=== PATIENT | male | born 1945 | race Caucasian/White ===

== ENCOUNTER → 2020-08-04 | Outpatient (CLI) | payer MEDICARE, BC ==
--- NOTE | 2020-08-05 08:51 | CT ---
EXAMINATION TYPE: CT angio chest DATE OF EXAM: 08/04/2020 COMPARISON: None HISTORY: aneurysm CT DLP: 530.9 mGycm Automated exposure control for dose reduction was used. CONTRAST: CTA scan of the thorax is performed with IV Contrast, patient injected with 100 mL of Isovue 370, pul monary embolism protocol. MIP images are created and reviewed. 3D reconstructed images are created on an independent workstation and reviewed. FINDINGS: LUNGS: The lungs are remarkable for a nodular area on axial image #23 chest suspect is associated wit h the fissure and is postinflammatory measuring approximately 1 cm transverse dimension, on sagittal imaging #79 lesion measures 4.1 cm in cephalad to caudal dimension and is 5 to 6 mm in AP dimension. There is dependent atelectatic change suspected There is no pleural effusion or pneumothorax seen. The tracheobronchial tree is patent. AORTA: The root of the aorta measures approximately 4.6 cm, ascending aorta 3.9 cm, proximal descend ing aorta 3.4 cm, the aorta at level of the hiatus measures approximately 2.7 cm MEDIASTINUM: There is satisfactory enhancement of the pulmonary artery and its branches, there is no CT evidence for pulmonary embolism. There are no greater than 1 cm hilar or mediastinal lymph nodes. No pericardial effusion is seen. Hiatal hernia is present with partial intrathoracic stomach. Ther e are coronary artery calcifications. OTHER: Low-density focus associated with the right adrenal gland measures approximately 2.2 cm is fe lt most likely to represent adenoma. There are low dense foci scattered within the liver which statis tically are likely to represent cysts, the largest in the left lobe measures 3.6 cm with Hounsfield u nit measurements in the cyst range. Spleen is enlarged measuring 15 cm in AP dimension. Left axillary adenopathy is noted incidentally, axial image 13 shows transverse dimension node of approximately 14 mm, there are additional nodes present including subpectoral region IMPRESSION: AORTIC ANEURYSM. SPLENOMEGALY. RIGHT ADRENAL MASS. HIATAL HERNIA. CORONARY ARTERY DISEASE. LEFT AXILL ROSMERY ADENOPATHY AND PULMONARY NODULE ARE INDETERMINATE. A Yellow level critical message alert has been initiated for Heaven Kumar MD via the [employer] [facility] [employer] Critical Results System on 08/05/2020 8:49 AM. This message alert has been sent to Heaven Kumar MD via the preferences provided by the clinician for the receipt of Radiology Critical Findings. Mess age ID [id number].
== END | disposition home or self-care (01) ==
LOC: RADCTMAIN 16:28
PROVIDERS: ATTEND Internal Medicine Interventional Cardiology
DX: I71.2 Thoracic aortic aneurysm, without rupture (principal); I25.10 Atherosclerotic heart disease of native coronary artery without angina pectoris
CPT/HCPCS: 82565; 84520; 71275; 36415; Q9967

== ENCOUNTER → 2021-08-10 | Outpatient (CLI) | payer MEDICARE, BC ==
--- NOTE | 2021-08-10 13:16 | CT ---
EXAMINATION TYPE: CT angio chest, without and with contrast DATE OF EXAM: 08/10/2021 COMPARISON: 08/04/2020 HISTORY: 76-year-old male I71.2, Thoracic aortic aneurysm, without rupture. TECHNIQUE: Contiguous axial scanning of the chest performed without and with IV Contrast, patient inj ected with 80ml mL of Isovue 370. Delayed images through the kidneys were obtained. Coronal/sagittal reconstructions performed. CT DLP: 1027 mGycm Automated exposure control for dose reduction was used. FINDINGS: Heart is upper limits of normal in size without pericardial effusion. Dense LAD coronary artery calci fications are present. Additional RCA coronary artery calcifications. Aortic root aneurysmal at 4.4 cm measured previously at 4.6 cm. Ascending aorta is ectatic at 3.9 cm, unchanged. Mild atherosclerotic arch calcifications and conventional arch vessel branching anatomy. Upper descending thoracic aorta ectatic and 3.4 cm, unchanged. Distal descending thoracic aorta overlying aneurysmal at 3.0 cm, unchanged. At the diaphragmatic hiatus, borderline ectatic at 2.5 cm. No evidence for aortic dissection. Initial noncontrast series show no evidence of acute intramural he matoma. Small calcified hilar and precarinal lymph nodes suggests sequela of prior granulomatous disease. No thoracic lymphadenopathy by size criteria. The mildly enlarged left axillary lymph nodes have decreased in size suggesting a reactive/post infla mmatory etiology. Right hilar lymph node is stable at 1.4 cm likely reactive/post inflammatory. No thoracic lymphadenop athy by CT size criteria. Unchanged 3 mm subpleural bony nodule posterior right upper lobe. Dependent atelectasis. No consolida tion or pleural effusion. Moderate-sized hiatal hernia. A 2.6 cm hypodensity mid right kidney likely cysts. Mild scattered colonic diverticulosis. Mild overa ll stool burden. Hepatic cysts measuring up to 3.9 cm redemonstrated. Low-density nodule measuring 2. 3 cm of the right adrenal gland is unchanged suggestive of a lipid rich benign adrenal adenoma. Bones: Moderate degenerative disc disease lower thoracic and upper lumbar spine. 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 IMPRESSION: 1. STABLE ANEURYSM AORTIC ROOT AT 4.4 CM. REMAINDER OF THE AORTA IS ALSO STABLE ECTATIC (ASCENDING 3. 9 CM, UPPER DESCENDING 3.4 CM, DISTAL DESCENDING 3.0 CM). 2. EVIDENCE OF PRIOR GRANULOMATOUS DISEASE. NO ACUTE PULMONARY PROCESS. 3. UNCHANGED 2.3 CM LIPID RICH RIGHT ADRENAL ADENOMA. MODERATE-SIZED HIATAL HERNIA.
== END | disposition home or self-care (01) ==
LOC: RADCTMAIN 11:23
PROVIDERS: ATTEND Internal Medicine Interventional Cardiology
DX: I71.2 Thoracic aortic aneurysm, without rupture (principal); D35.00 Benign neoplasm of unspecified adrenal gland; K44.9 Diaphragmatic hernia without obstruction or gangrene
CPT/HCPCS: 82565; 84520; 71275; 36415; Q9967

== ENCOUNTER → 2024-08-17 | Outpatient (CLI) | payer MEDICARE, BC ==
[2024-08-17 14:16] LABS: African American GFR (CKD) 76 (>60 ml/min/1.73 sqM); Blood Urea Nitrogen 31 mg/dL (9-20); Non-African American GFR(CKD) 65 (>60 ml/min/1.73 sqM)
--- NOTE | 2024-08-17 15:07 | CT ---
EXAMINATION TYPE: CT chest w con CT DLP: 518.1 mGycm, Automated exposure control for dose reduction was used. DATE OF EXAM: 08/17/2024 2:43 PM COMPARISON: CTA chest 08/10/2021, 08/04/2020 CLINICAL INDICATION:Male, 79 years old with history of R59.0 ADENOPATHY; PHH, adenopathy TECHNIQUE: Multiple axial images were obtained through the chest following the administration of 100 cc of Isovue 300. . Coronal and sagittal reformats reviewed. FINDINGS: LUNGS/ PLEURA: No pleural effusion, pneumothorax, focal consolidation. Minimal bilateral lower lobe d ependent subsegmental atelectasis. Right apical calcified granuloma. No suspicious pulmonary nodule o r mass. AIRWAY: Patent and unremarkable.. HEART: Cardiomegaly is demonstrated.No pericardial effusion. Moderate coronary artery calcifications present. The anterior chest wall cardiac pacemaking device with leads terminating in the right atriu m and right ventricle. MEDIASTINUM: Stable mildly enlarged right hilar lymph node measuring up to 1.6 cm when measured with similar technique. No new adenopathy. Calcified mediastinal and bilateral hilar granulomas. VASCULATURE: Stable aneurysmal dilatation of the aortic root measuring up to 4.5 cm. Stable aneurysm al dilatation of the ascending thoracic aorta measures up to 4.0 cm. The descending thoracic aorta is stable measuring up to 3.0 cm. Mild atherosclerotic calcification of the aorta and its branches. MUSCULOSKELETAL: No acute osseous abnormalities. DISH of the thoracic spine. SOFT TISSUES/LYMPH NODES: Unremarkable. LOWER NECK: No significant findings. UPPER ABDOMEN: Small to moderate size hiatal hernia. Redemonstration of scattered hepatic cysts with largest measuring up to 3.8 cm within the left hepatic lobe. Gallbladder is surgically absent. Right renal cyst measuring up to 3.5 cm. Stable right adrenal gland benign lipid rich adenoma measuring up to 2.2 cm. IMPRESSION: 1. Stable enlarged right hilar lymph node dating back to 2021 and considered benign. No new adenopath y. 2. Stable aneurysmal dilatation of the aortic root and ascending thoracic aorta measuring 4.5 and 4.0 cm respectively. 3. Similar small to moderate sized hernia. 4. Stable right adrenal gland benign lipid rich adenoma. 5. Sequelae of prior granulomatous disease. [facility], , 08/17/2024 3:04 PM
== END | disposition home or self-care (01) ==
LOC: RADCTMAIN 13:47
PROVIDERS: ATTEND Internal Medicine Hematology & Oncology
DX: I71.21 Aneurysm of the ascending aorta, without rupture (principal); I10 Essential (primary) hypertension; D35.01 Benign neoplasm of right adrenal gland; E78.5 Hyperlipidemia, unspecified; D72.829 Elevated white blood cell count, unspecified; R59.0 Localized enlarged lymph nodes; K46.9 Unspecified abdominal hernia without obstruction or gangrene; Z71.3 Dietary counseling and surveillance
CPT/HCPCS: 82565; 84520; 71260; 36415; Q9967